=== PATIENT | female | born 1995 | race Caucasian/White ===

== ENCOUNTER 2017-10-03 11:02 | Emergency (ER) | payer BC ==
[2017-10-03 11:16] VITALS: BP 129/78; PULSE 105; RESP 18; TEMP 98.6
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
[2017-10-03] MEDS ORDERED: KETOROLAC 60 MG/2 ML VIAL IM STA (12:22)
== END 2017-10-03 12:36 | disposition home or self-care (01) ==
LOC: EC 11:02
DX: L55.1 Sunburn of second degree (principal)
CPT/HCPCS: 99282; 16020; 96372; J1885